=== PATIENT | male | born 1955 | race Caucasian/White ===

== ENCOUNTER 2016-10-22 22:05 | Inpatient (IN) | payer MEDICARE ==
[~2016-10-22] VITALS: Ht 182.9 cm; Wt 101.8 kg
[2016-10-22 22:05] VITALS: RESP 22; O2SAT 97
[~2016-10-22 22:05] MED LIST: AMIT10 PO; ASPI81TA82 PO; ATOR40TA49 PO; JANU50TA5 PO; METO25 PO; NITR0.4S SL; NOVO7030P2 SQ; PLAV75TA PO; ROPI1TAB PO; SERT-129 PO
[2016-10-22 22:17] VITALS: BP 138/85; PULSE 76; RESP 22; TEMP 97.9; O2SAT 96
[2016-10-22] MEDS ORDERED: MORPHINE SULFATE 4 MG/ML INJ IV PUSH ONE (22:30)
[2016-10-22] MEDS ORDERED: CLOPIDOGREL 300 MG TAB PO ONE (22:30)
[2016-10-22] MEDS ORDERED: NITROGLYCERIN 2% OINT 1 GM PACKET TOP ONE (22:30)
[2016-10-22] MEDS ORDERED: ENOXAPARIN SODIUM 100 MG/ML SYRINGE SQ ONE (22:30)
[2016-10-22] MEDS ORDERED: SODIUM CHLORIDE 0.9% FLUSH 5 ML FLUSH IVF PRN (22:30)
--- NOTE | 2016-10-22 22:34 | PD ---
HPI . Chest pain Chief Complaint: Chest Pain Time Seen by Provider: 22:16 Travel History International Travel<30 days: No Contact w/Intl Traveler<30days: No Traveled to known affect area: No History of Present Illness HPI Patient presents with chest pain started about 2100. It is associated with diaphoresis, shortness of breath, nausea. It radiates to the left shoulder and arm. He states that he has not taken anything for it prior to arrival. He states he was transported by EMS but was not given any nitroglycerin. Patient does report many previous similar episodes. He reports known [place] with at least one stent. PFSH Past Medical History Hx Anticoagulant Therapy: Yes (81 MG ASA) Arthritis: Yes Asthma: No Blood Disorders: No Depression: Yes Heart Rhythm Problems: No Cancer: No Cardiac Catheterization: Yes Cardiovascular Problems: Yes (5 TIMES 6971-1307) High Cholesterol: Yes Chest Pain: Yes Congestive Heart Failure: No COPD: No Cerebrovascular Accident: No Coronary Artery Disease: Yes Diabetes: Yes Patient Takes Glucophage: No Diminished Hearing: No Endocrine: Yes Gastrointestinal Disorders: Yes (STOMACH LIFTED(SUPPORTED)) GERD: No Genitourinary: No Headaches: Yes Hiatal Hernia: Yes (REPAIRED 1999) Hypertension: Yes Immune Disorder: No Implanted Vascular Access Dvce: Yes Musculoskeletal: No Neurologic: Yes Psychiatric: No Reproductive: No Respiratory: Yes Immunizations Current: Yes Migraines: Yes Seizures: No Sleep Apnea: No Thyroid Disease: No Ulcer: Yes Tetanus Vaccination: < 5 Years Influenza Vaccination: Yes Past Surgical History Abdominal Surgery: Yes (HERNIA REPAIR) AICD: No Arteriovenous Shunt: No Body Medical Devices: has cardiac stent Cardiac Surgery: Yes (STENT REPLACEMENT ) Coronary Stent: Yes (1993 & CHANGED IN 2007) Ear Surgery: No Endocrine Surgery: No Eye Surgery: Yes (LEFT RETINA REATTACHED) Genitourinary Surgery: No Gynecologic Surgery: No Insulin Pump: No Joint Replacement: No Neurologic Surgery: No Oral Surgery: No Pacemaker: No Thoracic Surgery: No Other Surgery: Yes (stent,knee surgery,hiatal hernia) Family History Family Hypercholesterolemia: Yes Social History Alcohol Use: No Tobacco Use: No Substance Use: No Allergies-Medications (Allergen,Severity, Reaction): Coded Allergies: No Known Allergies (Verified , 05/26/15) Reported Meds & Prescriptions Reported Meds & Active Scripts Active Reported Janumet 50/500 (Sitagliptin Phosphate/Metformin HCl) 1 Tab Tab 1 Tab PO BID ADMINISTER WITH MEALS Novolin 70/30 (Insulin Human Isoph/Insulin Regular) 100 Units/Ml Inj 60 Units SQ DAILY Novolin 70/30 (Insulin Human Isoph/Insulin Regular) 100 Units/Ml Inj 35 Units SQ DAILYAC Ropinirole HCl (Ropinirole Hydrochloride) 1 Mg Tab 1 Mg PO HS Aspir-81 (Aspirin) 81 Mg Tab 81 Mg PO DAILY Plavix (Clopidogrel Bisulfate) 75 Mg Tab 75 Mg PO DAILY Lipitor 40 Mg Tab (Atorvastatin Calcium) 40 Mg Tab 80 Mg PO DAILY Sertraline 100 mg (Sertraline HCl) 100 Mg Tab 50 Mg PO DAILY Elavil 10 Mg Tab (Amitriptyline HCl) 10 Mg Tab 10 Mg PO HS Metoprolol Tartrate 25 mg (Metoprolol Tartrate) 25 Mg Tab 25 Mg PO BID Nitrostat (Nitroglycerin) 0.4 Mg Subl 0.4 Mg SL PRN 1 TAB SL EVERY 5 MINS X 3 PRN CHEST PAIN Review of Systems Except as stated in HPI: all other systems reviewed are Neg General / Constitutional: Positive: Other (diaphoresis) Cardiovascular: Positive: Chest Pain or Discomfort Respiratory: Positive: Shortness of Breath Gastrointestinal: Positive: Nausea Physical Exam Narrative GENERAL: Patient is awake and alert. SKIN: He is pale and diaphoretic HEAD: Atraumatic. Normocephalic. EYES: Pupils equal and round. ENT: No nasal bleeding or discharge. Mucous membranes pink and moist. NECK: Trachea midline. Neck is supple. CARDIOVASCULAR: Regular rate and rhythm. Heart sounds are normal. RESPIRATORY: No accessory muscle use. Lungs are clear with full air movement throughout. GASTROINTESTINAL: Abdomen soft, non-tender, nondistended. MUSCULOSKELETAL: No obvious deformities. No edema. NEUROLOGICAL: Awake and alert. No obvious cranial nerve deficits. Motor grossly within normal limits. Normal speech. PSYCHIATRIC: Appropriate mood and affect; insight and judgment normal. Data Data Last Documented VS Vital Signs Date Time Temp Pulse Resp B/P Pulse Ox O2 Delivery O2 Flow Rate FiO2 10/22/16 22:17 97.9 76 22 138/85 96 10/22/16 22:05 Nasal Cannula 2 Orders Ckmb (Isoenzyme) Profile (10/22/16 22:16) Complete Blood Count With Diff (10/22/16 22:16) Comprehensive Metabolic Panel (10/22/16 22:16) Magnesium (Mg) (10/22/16 22:16) Prothrombin Time / Inr (Pt) (10/22/16 22:16) Act Partial Throm Time (Ptt) (10/22/16 22:16) Troponin I (10/22/16 22:16) Chest, Single Ap (10/22/16 22:16) Ecg Monitoring (10/22/16 22:16) Bilateral Bp Monitoring (10/22/16 22:16) Iv Access Insert/Monitor (10/22/16 22:16) Oximetry (10/22/16 22:16) Oxygen Administration (10/22/16 22:16) Clopidogrel (Plavix) (10/22/16 22:30) Morphine Inj (Morphine Inj) (10/22/16 22:30) Nitroglycerin 2% Oint (Nitroglycerin 2% (10/22/16 22:30) Sodium Chloride 0.9% Flush (Ns Flush) (10/22/16 22:30) Enoxaparin Inj (Lovenox Inj) (10/22/16 22:30) CKMB (10/22/16 22:30) CKMB% (10/22/16 22:30) Place In Observation (10/22/16 23:57) Activity Bed Rest With Brp (10/22/16 23:57) Vital Signs (Adult) Q4H (10/22/16 23:57) Cardiac Rhythm .As Directed (10/22/16 23:57) ^ Notify Dr: Other .PRN (10/22/16 23:57) ^ Notify Dr. Parameters (10/22/16 23:57) Resp Oxygen Nasal Cannula (10/22/16 ) Resp Pulse Oximetry (10/22/16 ) Diet Liquid (10/23/16 Breakfast) Diet Npo (10/23/16 Breakfast) Diet Heart Healthy (10/23/16 Breakfast) ^ Saline Lock (10/22/16 23:57) Ckmb (Isoenzyme) Profile (10/22/16 23:57) Ckmb (Isoenzyme) Profile (10/23/16 02:57) Troponin I (10/22/16 23:57) Troponin I (10/23/16 02:57) Lipase (10/22/16 23:57) Magnesium (Mg) (10/22/16 23:57) B-Type Natriuretic Peptide (10/22/16 23:57) Basic Metabolic Panel (Bmp) (10/22/16 23:57) Act Partial Throm Time (Ptt) (10/22/16 23:57) Electrocardiogram (10/22/16 23:57) Electrocardiogram (10/23/16 02:57) ^ Obtain (10/22/16 23:57) Sodium Chlor 0.9% 1000 Ml Inj (Ns 1000 M (10/22/16 23:57) D5-1/2 Ns + Kcl 20 Meq Inj (D5-1/2 Ns + (10/22/16 23:57) Sodium Chloride 0.9% Flush (Ns Flush) (10/23/16 00:00) Sodium Chloride 0.9% Flush (Ns Flush) (10/23/16 00:00) Acetaminophen (Tylenol) (10/23/16 00:00) Acetamin-Hydrocod 325-7.5 Mg (Timpson 7.5 (10/23/16 00:00) Morphine Inj (Morphine Inj) (10/23/16 00:00) Ondansetron Inj (Zofran Inj) (10/23/16 00:00) Ranitidine (Zantac) (10/23/16 00:00) Pantoprazole (Protonix) (10/23/16 09:00) Carvedilol (Coreg) (10/23/16 00:00) Metoprolol Tartrate (Lopressor) (10/23/16 00:00) Lisinopril (Prinivil) (10/23/16 09:00) Nitroglycerin 2% Oint (Nitroglycerin 2% (10/23/16 00:00) Nitroglycerin Sl (Nitrostat Sl) (10/23/16 00:00) Aspirin Chew (Aspirin Chew) (10/23/16 00:00) Aspirin (Aspirin) (10/23/16 09:00) Temazepam (Restoril) (10/23/16 00:00) Alprazolam (Xanax) (10/23/16 00:00) Vte Prophylaxis Not Indicated (10/22/16 23:57) Enoxaparin Inj (Lovenox Inj) (10/23/16 00:00) Enoxaparin Inj (Lovenox Inj) (10/23/16 00:00) Heparin Inj (Heparin Inj) (10/23/16 00:00) Labs Laboratory Tests Test 10/22/16 22:30 White Blood Count 8.4 TH/MM3 Red Blood Count 4.78 MIL/MM3 Hemoglobin 14.6 GM/DL Hematocrit 42.1 % Mean Corpuscular Volume 88.1 FL Mean Corpuscular Hemoglobin 30.4 PG Mean Corpuscular Hemoglobin 34.6 % Concent Red Cell Distribution Width 13.4 % Platelet Count 160 TH/MM3 Mean Platelet Volume 10.2 FL Neutrophils (%) (Auto) 64.3 % Lymphocytes (%) (Auto) 23.0 % Monocytes (%) (Auto) 8.1 % Eosinophils (%) (Auto) 3.7 % Basophils (%) (Auto) 0.9 % Neutrophils # (Auto) 5.4 TH/MM3 Lymphocytes # (Auto) 1.9 TH/MM3 Monocytes # (Auto) 0.7 TH/MM3 Eosinophils # (Auto) 0.3 TH/MM3 Basophils # (Auto) 0.1 TH/MM3 CBC Comment DIFF FINAL Differential Comment Prothrombin Time 10.0 SEC Prothromb Time International 0.9 RATIO Ratio Activated Partial 23.9 SEC Thromboplast Time Sodium Level 138 MEQ/L Potassium Level 3.8 MEQ/L Chloride Level 102 MEQ/L Carbon Dioxide Level 24.9 MEQ/L Anion Gap 11 MEQ/L Blood Urea Nitrogen 10 MG/DL Creatinine 0.94 MG/DL Estimat Glomerular Filtration 82 ML/MIN Rate Random Glucose 148 MG/DL Calcium Level 8.8 MG/DL Magnesium Level 1.7 MG/DL Total Bilirubin 0.6 MG/DL Aspartate Amino Transf 27 U/L (AST/SGOT) Alanine Aminotransferase 40 U/L (ALT/SGPT) Alkaline Phosphatase 79 U/L Total Creatine Kinase 162 U/L Creatine Kinase MB 2.6 NG/ML Troponin I 0.02 NG/ML Total Protein 7.5 GM/DL Albumin 3.7 GM/DL [facility] Medical Decision Making Medical Screen Exam Complete: Yes Emergency Medical Condition: Yes Interpretation(s) EKG shows a normal sinus rhythm with no ST segment elevation or depression. EKG is unchanged from previous. Differential Diagnosis Differential diagnosis of chest pain includes but is not limited to musculoskeletal pain, pulmonary embolism, acute coronary syndrome, pneumonia, pleurisy Narrative Course This is a patient with a known history of coronary artery disease who presents with chest pain, shortness of breath, diaphoresis and nausea. He will be treated presumptively for ACS while awaiting his workup. Chest x-ray is negative to the radiologist's interpretation. Chest x-ray was independently viewed by me. Initial cardiac enzymes are negative. However, the patient has a "good story." He will be admitted to the chest pain center for further evaluation. Critical Care Narrative Aggregate critical care time was 45 minutes. Time to perform other separately billable procedures was not included in the critical care time. My time did not include minutes spent treating any other patients simultaneously or on activities that did not directly contribute to the patient's treatment. The services I provided to this patient were to treat and/or prevent clinically significant deterioration that could result in: Sudden cardiac , cardiac disability, ACS, [place] I provided critical care services requiring my management, as noted below: Chart data review, documentation time, medication orders and management, vital sign assessments/reviewing monitor data, ordering and reviewing lab tests, ordering and interpreting/reviewing x-rays and diagnostic studies, care of the patient and discussion of the patient with the admitting physicians. Diagnosis Primary Impression: Chest pain Qualified Code: R07.9 - Chest pain, unspecified type Admitting Information Admitting Physician Requests: Admit Condition: Stable Kathya Cummins MD Oct 22, 2016 22:33
--- NOTE | 2016-10-22 22:47 | RADRPT ---
EXAM DATE/TIME: 10/22/2016 22:36 [facility] COMPARISON: CHEST SINGLE AP, May 22, 2014, 15:01. INDICATIONS : Chest pain. MEDICAL HISTORY : Diabetes. Coronary Artery Disease. SURGICAL HISTORY : Cardiac catheterization. ENCOUNTER: Initial ACUITY: 2 weeks PAIN SCORE: 5/10 LOCATION: chest FINDINGS: A single view of the chest demonstrates the lungs to be symmetrically aerated without evidence of mas s, infiltrate or effusion. The cardiomediastinal contours are unremarkable. Osseous structures are intact. CONCLUSION: No acute disease. Carlos Beltran MD on October 22, 2016 at 22:45 Board Certified Radiologist. This report was verified electronically.
[2016-10-22 22:50] LABS: AUTOMATED NEUTROPHIL # 5.4 TH/MM3 (1.8-7.7); BASOPHIL # 0.1 TH/MM3 (0-0.2); BASOPHIL % 0.9 % (0.0-2.0); EOSINOPHIL # 0.3 TH/MM3 (0-0.4); EOSINOPHIL % 3.7 % (0.0-4.0); HEMATOCRIT 42.1 % (39.0-51.0); HEMO FLAGS DIFF FINAL; LYMPHOCYTE # 1.9 TH/MM3 (1.0-4.8); MEAN CELL VOLUME 88.1 FL (80.0-100.0); MEAN CORPUSCULAR HEMOGLOBIN 30.4 PG (27.0-34.0); MEAN CORPUSCULAR HGB CONC 34.6 % (32.0-36.0); MONO % 8.1 % (0.0-8.0); NEUT % 64.3 % (16.0-70.0); PLATELET COUNT 160 TH/MM3 (150-450); RED BLOOD COUNT 4.78 MIL/MM3 (4.50-5.90); RED CELL DISTRIBUTION WIDTH 13.4 % (11.6-17.2); WHITE BLOOD COUNT 8.4 TH/MM3 (4.0-11.0)
[2016-10-22 23:00] LABS: APTT (PATIENT) 23.9 SEC (24.3-30.1); INTERNATIONAL NORMALIZED RATIO 0.9 RATIO
[2016-10-22 23:28] LABS: ALKALINE PHOSPHATASE 79 U/L (45-117); ALT (GPT) 40 U/L (12-78); ANION GAP 11 MEQ/L (5-15); AST (GOT) 27 U/L (15-37); BICARBONATE 24.9 MEQ/L (21.0-32.0); BLOOD UREA NITROGEN 10 MG/DL (7-18); CHLORIDE 102 MEQ/L (98-107); CREATINE KINASE 162 U/L (39-308); GLOMERULAR FILTRATION RATE 82 ML/MIN (>89); MAGNESIUM 1.7 MG/DL (1.5-2.5); SODIUM (NA) 138 MEQ/L (136-145); TOTAL BILIRUBIN ADULT 0.6 MG/DL (0.2-1.0)
[2016-10-22 23:37] LABS: POTASSIUM 3.8 MEQ/L (3.5-5.1)
[2016-10-22 23:50] LABS: CKMB 2.6 NG/ML (0.5-3.6)
[2016-10-22] MEDS ORDERED: D5-1/2 NS + KCL 20 MEQ INJ 1,000 ML IV SCH (23:57)
[2016-10-23] VITALS (10 sets, daily range): BP systolic 104–116; BP diastolic 58–74; PULSE 56–79; RESP 16–18; TEMP 98–98.3; O2SAT 92–98
[2016-10-23] MEDS ORDERED: MORPHINE SULFATE 4 MG/ML INJ IV PRN
[2016-10-23] MEDS ORDERED: ACETAMINOPHEN 500 MG CPLT PO PRN
[2016-10-23] MEDS ORDERED: SODIUM CHLORIDE 0.9% FLUSH 5 ML FLUSH IVF PRN
[2016-10-23] MEDS ORDERED: ENOXAPARIN SODIUM 30 MG/0.3 ML SYRINGE SQ SCH
[2016-10-23] MEDS ORDERED: ASPIRIN 81 MG CHEW TAB PO ONE
[2016-10-23] MEDS ORDERED: RANITIDINE HCL 150 MG TAB PO SCH
[2016-10-23] MEDS ORDERED: HEPARIN SODIUM - SQ 10,000 UNITS/ML VIAL SQ SCH ×2
[2016-10-23] MEDS ORDERED: ENOXAPARIN SODIUM 40 MG/0.4 ML SYRINGE SQ SCH
[2016-10-23] MEDS ORDERED: ALPRAZolam 0.25 MG TAB PO PRN
[2016-10-23] MEDS ORDERED: ACETAMINOPHEN/HYDROcodone 325 MG/7.5 MG TAB PO PRN
[2016-10-23] MEDS ORDERED: NITROGLYCERIN 0.4 MG SL 25 TABS/BTL SL PRN
[2016-10-23] MEDS: METOPROLOL TARTRATE 25 MG TAB PO SCH ×3 (00:46→23:58)
[2016-10-23] MEDS: SODIUM CHLOR 0.9% 1000 ML INJ 1,000 ML IV SCH ×3 (00:46→21:32)
[2016-10-23] MEDS: CARVEDILOL 3.125 MG TAB PO SCH ×3 (00:46→21:33)
[2016-10-23] MEDS: FAMOTIDINE 20 MG TAB PO SCH ×3 (02:13→21:33)
[2016-10-23 02:17] LABS: CREATINE KINASE 241 U/L (39-308)
[2016-10-23 02:30] LABS: CKMB 5.3 NG/ML (0.5-3.6)
[2016-10-23] MEDS ORDERED: ROPI1TAB PO (03:17)
[2016-10-23] MEDS ORDERED: JANU50TA4 PO (03:17)
[2016-10-23] MEDS ORDERED: PROP40TA3 PO (03:17)
[2016-10-23] MEDS ORDERED: ASPI81TA2 PO (03:17)
[2016-10-23] MEDS ORDERED: ATOR1TAB18 PO (03:17)
[2016-10-23] MEDS ORDERED: PLAV75TA29 PO (03:17)
[2016-10-23] MEDS ORDERED: HUMU70IN (03:17)
[2016-10-23] MEDS ORDERED: NITR0.4S SL (03:17)
[2016-10-23] MEDS ORDERED: TRAZ50TA12 PO (03:17)
[2016-10-23] MEDS ORDERED: SERT-129 PO (03:17)
[2016-10-23] MEDS ORDERED: GLUCAGON 1 MG/ML VIAL OTHER PRN (04:30)
[2016-10-23] MEDS ORDERED: DEXTROSE 50% IN WATER 50 ML VIAL(D50) IV PUSH PRN (04:30)
[2016-10-23 05:23] LABS: APTT (PATIENT) 27.5 SEC (24.3-30.1)
[2016-10-23 05:36] LABS: BICARBONATE 26.3 MEQ/L (21.0-32.0); MAGNESIUM 1.8 MG/DL (1.5-2.5); POTASSIUM 3.5 MEQ/L (3.5-5.1)
[2016-10-23 06:01] LABS: CKMB 6.9 NG/ML (0.5-3.6)
[2016-10-23] MEDS: NITROGLYCERIN 2% OINT 1 GM PACKET TOP SCH ×2 (06:02)
[2016-10-23] MEDS: INSULIN ASPART SUPPLEMENTAL SCALE SQ SCH ×4 (07:00→21:33)
[2016-10-23] MEDS: SODIUM CHLORIDE 0.9% FLUSH 5 ML FLUSH IVF SCH ×3 (09:00→21:32)
[2016-10-23] MEDS ORDERED: PANTOPRAZOLE SOD 40 MG DELAYED RELEASE TAB PO SCH (09:00)
[2016-10-23] MEDS ORDERED: ASPIRIN 325 MG TAB PO SCH (09:00)
[2016-10-23] MEDS: SERTRALINE HCL 100 MG TAB PO SCH (10:29)
[2016-10-23] MEDS: LISINOPRIL 10 MG TAB PO SCH (10:29)
--- NOTE | 2016-10-23 12:47 | MH ---
cc: VIRGINIA GIBSON DATE OF ADMISSION 10/23/2016 ADMISSION DIAGNOSIS Non-ST elevation elevated myocardial infarction. HISTORY OF PRESENT ILLNESS This is a 60-year white male well-known to the undersigned physician has a history of atherosclerotic heart disease with two previous coronary stents placed in the right coronary artery, the first in 1995 and second in 2007. The patient has been asymptomatic for any coronary disease until about the last two to three weeks, the patient stated that he started having intermittent chest pain which is described as substernal, sharp pain which would radiate up to his jaw and then to his left arm. He did not seek any medical attention. This was not exertional, but would occur any time of the day and with activity or rest. It was self-limiting and would go away on its own. He did not use any nitroglycerin. The patient states that on the night prior to admission, the patient had a sudden onset of severe sharp substernal chest pain which radiated to the left arm and up to the jaw. He was diaphoretic, lightheaded, weak and nauseated. His significant other contacted EMS and the patient was transported this to this facility for further evaluation and treatment. In the an ambulance, the patient's pain significantly improved. He stated that the initial pain was greater than a 10/10 per his report, but by the time he came to the emergency department, it was a 4-5/10. The patient reports nitroglycerin ointment was placed. The patient had an EKG which revealed no significant change from prior EKG. He states that the pain has slowly improved over his time in the emergency department. He now has a light pressure on his chest, but denies any shortness of breath, diaphoresis, or nausea. He rates the current sensation as a 2-3/10. The patient has had no abdominal pain or emesis. He states his bowels have been moving well. He has chronic peripheral neuropathy with numbness in the hands and feet. He has been compliant with his medications. He has a history of diabetes, but his recent lab work revealed poor glycemic control. The patient has had no fever, chills, night sweats, lateralizing neurologic deficits, palpitations, lower extremity edema. He denies any urinary difficulties. PAST MEDICAL HISTORY His past medical history significant for: 1. Hyperlipidemia 2. ASHD with coronary artery stents in the right coronary artery 3. in 1995 and 2007 4. Generalized osteoarthritis 5. Gastroesophageal reflux disease 6. Achalasia 7. Colonic polyps 8. Peripheral neuropathy in the hands and feet 9. History of gastroesophageal reflux disease with esophageal strictures the last of which was dilated in 2007. 10. He has chronic fatigue syndrome. 11. Non-insulin and diabetes. 12. He had a history of Salmonella gastroenteritis in 2013. 13. He has a history of anxiety and depression. 14. The patient also has restless leg syndrome. 15. He recently did drop an essential tremor for which he is receiving propranolol which is controlling the tremor. MEDICATIONS His current medications are: 1. Propranolol 40 mg 60 mg twice daily 2. Humulin 70/30 insulin, 30 units in morning and 55 units in the evening 3. Janumet 50/500 mg one tablet twice daily 4. Enteric-Coated aspirin 81 mg daily 5. Plavix 75 mg daily 6. Atorvastatin 80 mg daily 7. Sertraline 50 mg daily 8. Nitroglycerin 0.4 mg one sublingual every 5 minutes x3 p.r.n. chest pain 9. Ropinirole 1 mg at bedtime ALLERGIES He has no known drug allergies. PAST SURGICAL HISTORY His surgical history is positive for: 1. Arthroscopic surgery to the knee in 1987. 2. He had a laparoscopic fundoplication for severe gastroesophageal reflux disease in 1999. 3. He is status post bilateral cataract removal with lens implants. 4. He has had the above-mentioned coronary stent placements. 5. He had a cardiac catheterization the last of which was in 2012. FAMILY HISTORY Noncontributory SOCIAL HISTORY He is disabled due to chronic fatigue syndrome. He is single, but lives with a significant other. He is a former smoke, but he has no smoked in almost 20 years. REVIEW OF SYSTEMS Negative except as outlined above. PHYSICAL EXAMINATION VITAL SIGNS: The patient's blood pressure upon arrival to the emergency department was 138/85, heart rate was 76, respirations 22, temperature 97.9 degrees Fahrenheit, oxygen saturation was 97% on two liters minute per nasal cannula. GENERAL: At the current time, the patient is an overweight elderly middle-aged white male lying on a stretcher in no acute distress. HEENT: The pupils are equal, round reactive to light. EOMI. Sclerae anicteric. Conjunctive are pink. Bilateral lens implants in place. Mouth and throat reveal moist mucous membranes. No erythema or exudates. Dentition is good. NECK: Supple without lymphadenopathy, JVD, bruits or thyromegaly. CARDIOVASCULAR: Regular rate and rhythm without murmurs, rubs or gallops. LUNGS: Clear to auscultation without wheezes, rhonchi or rales. ABDOMEN: Soft, nontender, nondistended. Bowel sounds present. No mass palpable. No hepatosplenomegaly. AND RECTAL: Deferred. EXTREMITIES: Lower extremities reveal no appreciable edema. No calf tenderness. No Yesica sign and 2+ distal pulses. No open areas. No bony deformities. SKIN: Warm and dry. NEUROLOGIC EXAMINATION: The patient is awake, alert, oriented x3. Speech is intact. Cranial nerves are intact. There are no lateralizing deficits. LABORATORY DATA The patient's white blood cell count was 8.4, hemoglobin 14.6, hematocrit 42.1, platelet count 160,000. The INR was 0.9, APTT 23.9. His comprehensive metabolic profile was significant only for a random glucose of 148. His initial CK was 162 the second was 241 and the third was 336. An MB percent was 2.6 initially, then 5.3, and the third was 6.9%. Troponin was normal as initially at 0.02, but follow-up six hours later was 0.41 and the third was 0.80. BNP normal at 19. Lipase normal at 258. The chest x-ray revealed no acute disease. EKG The initial EKG revealed sinus rhythm with a rate of 77 beats per minute. There was some nonspecific ST T-wave abnormalities. The axis was -5 degrees. No significant change from prior studies. The subsequent two EKG's have not shown any significant changes. IMPRESSION AND PLAN 1. This 60-year-old white male presented and his initial cardiac enzymes and EKG's were unremarkable. He was to be placed in the chest pain center, however, his second set of cardiac enzymes were elevated, therefore his diagnosis was changed to a non-ST elevated myocardial infarction. At that time, the undersigned physician was contacted and the patient was placed under observation for further treatment and evaluation in the emergency department. The patient was given Lovenox 100 mg subcutaneously in the emergency department, as well as nitroglycerin paste and Plavix 300 mg one time dose. At the current time, the patient is reporting some mild chest pressure. The emergency room physician spoke with Dr. Louise who was covering for cardiology and he recommended continuing with current regimen and the patient will be catheterized "in the morning." Since the patient is going to need cardiac catheterization and likely further intervention, I have elected to change the patient from the observation status to inpatient status as there is a high likelihood that he will require more than two days of hospitalization in order to fully evaluate his cardiac status. The patient's regular hydraulic boom operator is Dr. Ceja and I have placed a call to him to determine if he will be proceeding with the evaluation or whether Dr. Louise will. Based on the conversation, we will we will consult with the appropriate hydraulic boom operator and will finalize the plan of care. 2. Insulin dependent diabetes. Hold scheduled insulin, provide a sliding scale and frequent Accu-Chek's until the patient is taking p.o. Hold Januvia and metformin at this point. 3. History of depression and anxiety. Continue with trazodone and sertraline. 4. Restless leg syndrome. Continue with Ropinerol. 5. History of gastroesophageal reflux disease. Continue with pantoprazole 40 mg daily. 6. Hyperlipidemia. Continue with atorvastatin 80 mg daily. 7. The patient will be continued with aspirin and Plavix, nitroglycerin paste and based on his response and the consultation with cardiology, we make further recommendations. MD MOISES Johnson/PAYAL /12:01 PM /12:26 PM
[2016-10-23] MEDS ORDERED: MIDAZOLAM HCL 2 MG/2 ML VIAL ONE (15:06)
[2016-10-23] MEDS ORDERED: HEPARIN-NS/PF INJ 500 ML ONE (15:06)
[2016-10-23] MEDS ORDERED: IOHEXOL 350 MG/ML 100 ML BTL (for Cath Lab) OTHER ONE (15:24)
[2016-10-23] MEDS ORDERED: HEPARIN SODIUM - IV 10,000 UNITS/10 ML VIAL ONE (15:44)
[2016-10-23] MEDS ORDERED: TIROFIBAN BOLUS INJ 100 ML IV ONE (15:45)
[2016-10-23] MEDS ORDERED: DOPamine INJ PREMIX 500 ML ONE (15:50)
--- NOTE | 2016-10-23 16:23 | MB ---
cc: CAYLA CEJA M.D., JASON DATE OF CONSULTATION: 10/23/2016 HISTORY OF PRESENT ILLNESS Thank you Dr. Shen for asking me to see this 60-year-old white male who is well-known to me for many years. He had his first stent in the right coronary in 1995. In 2007 he had a fracture of that stent and required a second stent. Subsequent to that he came to the emergency room and had a cardiac catheterization on 12/23/2012 and at that time he received a heart cath and was found to have no significant obstructive coronary artery disease with mild haziness in the mid LAD, suggestive of possible thrombus. He was treated medically and did fine. Over the past month according to the patient he has been having increasing chest pain. He did not tell his or seek medical advice. He now had 10/10 chest pain last night, he has had a bump in his troponin. EKG showed no major changes. Other problems include severe renal failure with a creatinine elevated today. PAST MEDICAL HISTORY 1. Positive for ASHD status post stent in the right coronary. 2. Osteoarthritis. 3. Hyperlipidemia. 4. Achalasia. 5. Colon polyps. 6. GE reflux. 7. Chronic fatigue syndrome. 8. Diabetes. 9. Salmonella. 10. Essential tremor. MEDICATION At home include: 1. Propranolol. 2. Humulin. 3. Janumet. 4. Enteric coated aspirin. 5. Plavix. 6. Aspirin. ALLERGIES None known. PAST SURGICAL HISTORY 1. Arthroscopic surgery right knee in 1987. 2. Laparoscopic fundoplication for reflux in 1999. 3. Status post cataract removal. FAMILY HISTORY Noncontributory. SOCIAL HISTORY Disabled. Former smoker. Lives with his significant other. REVIEW OF SYSTEMS Denies seizure, headache, vomiting, diarrhea, dysuria, hematuria. The remainder of 12 point review of systems is negative. PHYSICAL EXAMINATION VITAL SIGNS: His pulse was 56, blood pressure 114/65, respirations 18. EYES: No xanthelasma. MOUTH: No cyanosis or pallor. NECK: No JVD. CARDIAC: He had two heart sounds, no murmurs. CHEST: Clear. ABDOMEN: Soft. No hepatosplenomegaly. EXTREMITIES: Legs reveal no edema. NEUROLOGIC: Grossly intact. SKIN: Intact. LABORATORY DATA Hemoglobin 13.3, MCV 88.9. Troponin was 0.8, going up from 0.02, creatinine 0.84, BUN 10. ASSESSMENT/PLAN The patient is very unstable from a cardiac perspective. He has unstable angina with elevated troponin. EKG, however does show normal sinus rhythm with no obvious ST changes. Will plan to proceed with diagnostic heart catheterization. The risks of heart catheterization including , bleeding, myocardial infarction, perforation, aspiration, renal failure, foreseen and unforeseen complications were reviewed. The patient fully appeared to understand the risks. Cayla Ceja MD, CP,[facility] HAJ/TLL /2:29 PM /3:47 PM
[2016-10-23] MEDS ORDERED: CLOPIDOGREL 300 MG TAB ONE (16:27)
[2016-10-23] MEDS ORDERED: SODIUM CHLOR 0.9% 1000 ML INJ 1,000 ML IV SCH (17:01)
[2016-10-23] MEDS ORDERED: ONDANSETRON HCL 4 MG/2 ML VIAL IV PRN ×2 (17:15)
[2016-10-23] MEDS ORDERED: TEMAZEPAM 15 MG CAP PO PRN ×2 (17:15)
[2016-10-23] MEDS ORDERED: SODIUM CHLOR 0.9% 250 ML INJ 250 ML IV PRN (17:15)
[2016-10-23] MEDS ORDERED: MISC INFORMATION XX ONE (17:15)
[2016-10-23] MEDS ORDERED: ACETAMINOPHEN 325 MG TAB PO PRN (17:15)
[2016-10-23] MEDS ORDERED: oxyCODONE/ACETAMINOPHEN 5 MG/325 MG TAB PO PRN (17:15)
[2016-10-23] MEDS ORDERED: ASPIRIN 81 MG CHEW TAB PO SCH (17:15)
[2016-10-23] MEDS ORDERED: BACITRACIN OINT 0.9 GM PKT TOP ONE (17:15)
[2016-10-23] MEDS ORDERED: oxyCODONE/ACETAMINOPHEN 10 MG/325 MG TAB PO PRN (17:15)
[2016-10-23] MEDS ORDERED: ATROPINE SULFATE 1 MG/ML VIAL IV PRN (17:15)
--- NOTE | 2016-10-23 20:57 | EKG ---
Date Performed: 10/23/2016 Time Performed: 04:59:10 PTAGE: 60 years EKG: SINUS BRADYCARDIA NONSPECIFIC T-WAVE ABNORMALITY BORDERLINE ECG PREVIOUS TRACING : 05/23/2014 01.55 DOCTOR: Scotty Valentin Interpretating Date/Time 10/23/2016 20:55:23
[2016-10-23] MEDS ORDERED: traZODone HCL 50 MG TAB PO SCH (21:00)
[2016-10-23] MEDS ORDERED: ATORVASTATIN 80 MG TAB PO SCH (21:00)
--- NOTE | 2016-10-23 21:00 | EKG ---
Date Performed: 10/23/2016 Time Performed: 00:45:04 PTAGE: 60 years EKG: Sinus rhythm WITH SHORT MA INTERVAL NONSPECIFIC T-WAVE ABNORMALITY BORDERLINE ECG PREVIOUS TRACING : 05/23/2014 01.55 DOCTOR: Scotty Valentin Interpretating Date/Time 10/23/2016 20:58:58
--- NOTE | 2016-10-23 21:03 | EKG ---
Date Performed: 10/22/2016 Time Performed: 22:08:57 PTAGE: 60 years EKG: Sinus rhythm NONSPECIFIC T-WAVE ABNORMALITY BORDERLINE ECG NO PREVIOUS TRACING DOCTOR: Scotty Valentin Interpretating Date/Time 10/23/2016 21:01:01
[2016-10-24] VITALS (19 sets, daily range): BP systolic 118–144; BP diastolic 53–79; PULSE 62–93; RESP 16–18; TEMP 97.9–98.5; O2SAT 92–95
[2016-10-24] MEDS: NITROGLYCERIN 2% OINT 1 GM PACKET TOP SCH ×2 (06:00)
[2016-10-24] MEDS: INSULIN ASPART SUPPLEMENTAL SCALE SQ SCH ×3 (06:29→17:01)
--- NOTE | 2016-10-24 08:40 | HHI.PR ---
Subjective Remarks S/P Stent placement. Doing well. No chest pain or pressure. Denies SOB. Was ambulating in halls last evening. Taking po well. Current Medications Medications (Trade) Dose Ordered Sig/Vianca Route Start Time Stop Time Status Last Admin IV Flush 2 ml 2 ml UNSCH PRN IVF 10/22/16 22:30 (NS 1000 ml Inj) 1,000 ml @ 100 mls/hr Q10H IV 10/22/16 23:57 10/23/16 21:32 (NS Flush) 2 ml UNSCH PRN IVF 10/23/16 00:00 (NS Flush) 2 ml BID IVF 10/23/16 00:00 10/23/16 21:32 (Tylenol) 500 mg Q4H PRN PO 10/23/16 00:00 ([place] 7.5-325 Mg) 1 tab Q4H PRN PO 10/23/16 00:00 (Morphine Inj) 2 mg Q4H PRN IV 10/23/16 00:00 (Zofran Inj) 4 mg Q6H PRN IV 10/23/16 00:00 (Protonix) 40 mg DAILY PO 10/23/16 09:00 10/23/16 10:28 (Coreg) 3.125 mg BID PO 10/23/16 00:00 10/23/16 21:33 (Lopressor) 25 mg Q12H PO 10/23/16 00:00 10/23/16 23:58 (Prinivil) 10 mg DAILY PO 10/23/16 09:00 10/23/16 10:29 (Nitroglycerin 2% Oint) 1 inch Q6HR TOP 10/23/16 00:00 10/23/16 06:02 (Nitrostat Sl) 0.4 mg Q5M PRN SL 10/23/16 00:00 (Xanax) 0.25 mg Q8H PRN PO 10/23/16 00:00 (Pepcid) 20 mg BID PO 10/23/16 01:00 10/23/16 21:33 (Lipitor) 80 mg HS PO 10/23/16 21:00 10/23/16 21:33 (Requip) 1 mg HS PO 10/23/16 21:00 10/23/16 21:33 (Zoloft) 100 mg DAILY PO 10/23/16 09:00 10/23/16 10:29 (Desyrel) 50 mg HS PO 10/23/16 21:00 10/23/16 21:33 (D50w (Vial) Inj) 25 ml UNSCH PRN IV PUSH 10/23/16 04:30 (Glucagon Inj) 1 mg UNSCH PRN OTHER 10/23/16 04:30 (Tylenol) 325 mg Q4H PRN PO 10/23/16 17:15 10/23/16 18:06 (Percocet 5-325 Mg) 1 tab Q4H PRN PO 10/23/16 17:15 (Percocet 10-325 Mg) 1 tab Q4H PRN PO 10/23/16 17:15 (Restoril) 15 mg HS PRN PO 10/23/16 17:15 (Plavix) 75 mg DAILY PO 10/24/16 09:00 Atropine Sulfate 0.5 mg 0.5 mg UNSCH PRN IV 10/23/16 17:15 (NS 250 ml Inj) 250 ml @ 500 mls/hr ONCE PRN IV 10/23/16 17:15 10/24/16 17:14 (Zofran Inj) 4 mg Q4H PRN IV 10/23/16 17:15 (Aspirin Chew) 81 mg DAILY PO 10/24/16 09:00 Objective Vital Signs Date Time Temp Pulse Resp B/P Pulse Ox O2 Delivery O2 Flow Rate FiO2 10/24/16 07:45 95 Room Air 10/24/16 07:45 78 10/24/16 07:45 98.5 78 18 144/77 95 10/24/16 06:00 72 10/24/16 05:00 62 10/24/16 04:00 72 10/24/16 03:00 65 10/24/16 03:00 98.3 89 16 118/53 94 10/24/16 02:00 72 10/24/16 01:00 74 10/24/16 00:00 70 10/23/16 23:00 72 10/23/16 23:00 98.0 72 16 116/58 92 10/23/16 22:00 75 10/23/16 21:00 69 10/23/16 20:00 71 10/23/16 20:00 98.3 72 16 104/58 95 10/23/16 19:00 70 10/23/16 16:38 92 Room Air 10/23/16 15:52 98 21 10/23/16 14:30 79 18 110/67 98 Room Air 10/23/16 12:00 65 18 115/74 98 Room Air 10/23/16 10:00 70 18 110/63 98 I/O 10/23/16 10/23/16 10/23/16 10/24/16 10/24/16 10/24/16 07:00 15:00 23:00 07:00 15:00 23:00 Intake Total 906 ml Output Total 1000 ml Balance -94 ml Intake Oral 240 ml IV Total 666 ml Output Urine Total 1000 ml # Bowel Movements 0 Gen: NAD lying in bed CV: RRR Lungs: CTA Ext: no edema or calf tenderness Right groin: dressing in place. Small blood on dressing Result Diagram: 10/22/16222910/23/16 0446 Assessment and Plan Problem List: (1) ASHD (arteriosclerotic heart disease) Status: Chronic Plan: Status post stent placement. Doing well. Continues with Plavix, ECASA, Lisinopril and beta brenna. PAtient was receiving Propranolol as outpatient as it also helped with Essential tremor. (2) IDDM (insulin dependent diabetes mellitus) Status: Chronic Plan: PAtient will resume Humulin 70/30 insulin at discharge. Will hold metformin for 3 days due to cath. (3) Peripheral neuropathy Status: Chronic Plan: Stable (4) Generalized anxiety disorder Status: Chronic Plan: Continue current medication. Well controlled (5) Hyperlipidemia Status: Chronic Plan: resume Atorvastatin as outpatient Discharge Planning Patient will be up and out of bed today. If does well will discharge home later today. Problem Qualifiers (1) Peripheral neuropathy: Qualified Code: G60.9 - Idiopathic peripheral neuropathy (2) Hyperlipidemia: Qualified Code: E78.2 - Mixed hyperlipidemia Seth Shen MD Oct 24, 2016 08:40
[2016-10-24] MEDS ORDERED: CLOPIDOGREL 75 MG TAB PO SCH (09:00)
[2016-10-24] MEDS ORDERED: ASPIRIN 81 MG CHEW TAB PO SCH (09:00)
[2016-10-24] MEDS: SERTRALINE HCL 100 MG TAB PO SCH (09:46)
[2016-10-24] MEDS: LISINOPRIL 10 MG TAB PO SCH (09:46)
[2016-10-24] MEDS: SODIUM CHLORIDE 0.9% FLUSH 5 ML FLUSH IVF SCH (09:47)
[2016-10-24 10:35] LABS: BICARBONATE 24.4 MEQ/L (21.0-32.0); POTASSIUM 4.1 MEQ/L (3.5-5.1)
[2016-10-24] MEDS: METOPROLOL TARTRATE 25 MG TAB PO SCH (12:38)
--- NOTE | 2016-10-24 14:40 | PD.CARD.PN ---
Subjective Subjective Remarks Patient seen and evaluated at 0930 this morning. Patient feels "much better today". No Chest pain, diaphoresis of SOB. No groin pain at incision site. A small amount of bleeding on dressing. Hemodynamically stable. (Lynn Ordaz) Objective Medications Current Medications Medications (Trade) Dose Ordered Sig/Vianca Route Start Time Stop Time Status Last Admin IV Flush 2 ml 2 ml UNSCH PRN IVF 10/22/16 22:30 (NS 1000 ml Inj) 1,000 ml @ 100 mls/hr Q10H IV 10/22/16 23:57 10/23/16 21:32 (NS Flush) 2 ml UNSCH PRN IVF 10/23/16 00:00 (NS Flush) 2 ml BID IVF 10/23/16 00:00 10/24/16 09:47 (Tylenol) 500 mg Q4H PRN PO 10/23/16 00:00 ([place] 7.5-325 Mg) 1 tab Q4H PRN PO 10/23/16 00:00 (Morphine Inj) 2 mg Q4H PRN IV 10/23/16 00:00 (Lopressor) 25 mg Q12H PO 10/23/16 00:00 10/24/16 12:38 (Prinivil) 10 mg DAILY PO 10/23/16 09:00 10/24/16 09:46 (Nitrostat Sl) 0.4 mg Q5M PRN SL 10/23/16 00:00 (Xanax) 0.25 mg Q8H PRN PO 10/23/16 00:00 (Lipitor) 80 mg HS PO 10/23/16 21:00 10/23/16 21:33 (Requip) 1 mg HS PO 10/23/16 21:00 10/23/16 21:33 (Zoloft) 100 mg DAILY PO 10/23/16 09:00 10/24/16 09:46 (Desyrel) 50 mg HS PO 10/23/16 21:00 10/23/16 21:33 (D50w (Vial) Inj) 25 ml UNSCH PRN IV PUSH 10/23/16 04:30 (Glucagon Inj) 1 mg UNSCH PRN OTHER 10/23/16 04:30 (Tylenol) 325 mg Q4H PRN PO 10/23/16 17:15 10/23/16 18:06 (Restoril) 15 mg HS PRN PO 10/23/16 17:15 (Plavix) 75 mg DAILY PO 10/24/16 09:00 10/24/16 09:47 Atropine Sulfate 0.5 mg 0.5 mg UNSCH PRN IV 10/23/16 17:15 (NS 250 ml Inj) 250 ml @ 500 mls/hr ONCE PRN IV 10/23/16 17:15 10/24/16 17:14 (Aspirin Chew) 81 mg DAILY PO 10/24/16 09:00 10/24/16 09:46 Vital Signs / I&O Vital Signs Date Time Temp Pulse Resp B/P Pulse Ox O2 Delivery O2 Flow Rate FiO2 10/24/16 13:42 92 10/24/16 07:45 95 Room Air 10/24/16 07:45 78 10/24/16 07:45 98.5 78 18 144/77 95 10/24/16 06:00 72 10/24/16 05:00 62 10/24/16 04:00 72 10/24/16 03:00 65 10/24/16 03:00 98.3 89 16 118/53 94 10/24/16 02:00 72 10/24/16 01:00 74 10/24/16 00:00 70 10/23/16 23:00 72 10/23/16 23:00 98.0 72 16 116/58 92 10/23/16 22:00 75 10/23/16 21:00 69 10/23/16 20:00 71 10/23/16 20:00 98.3 72 16 104/58 95 10/23/16 19:00 70 10/23/16 16:38 92 Room Air 10/23/16 15:52 98 21 I/O 10/23/16 10/23/16 10/23/16 10/24/16 10/24/16 10/24/16 07:00 15:00 23:00 07:00 15:00 23:00 Intake Total 906 ml Output Total 1000 ml Balance -94 ml Intake Oral 240 ml IV Total 666 ml Output Urine Total 1000 ml # Bowel Movements 0 Physical Exam GENERAL: obese male, in bed, no distress SKIN: Warm and dry. HEAD: Normocephalic. EYES: No scleral icterus. No injection or drainage. NECK: Supple, trachea midline. No JVD or lymphadenopathy. CARDIOVASCULAR: Regular rate and rhythm without murmurs, gallops, or rubs. Right groin dressing saturated with small amount of blood. No tenderness to palpation or swelling. RESPIRATORY: Breath sounds equal bilaterally. No accessory muscle use. GASTROINTESTINAL: Abdomen soft, non-tender, nondistended. MUSCULOSKELETAL: No cyanosis, or edema. BACK: Nontender without obvious deformity. No CVA tenderness. Laboratory Laboratory Tests Test 10/24/16 09:48 Sodium Level 138 MEQ/L Potassium Level 4.1 MEQ/L Chloride Level 106 MEQ/L Carbon Dioxide Level 24.4 MEQ/L Anion Gap 8 MEQ/L Blood Urea Nitrogen 9 MG/DL Creatinine 0.88 MG/DL Estimat Glomerular Filtration 88 ML/MIN Rate Random Glucose 239 MG/DL Calcium Level 8.0 MG/DL Imaging Last 72 hours Impressions Chest X-Ray 10/22/16 6876 Signed Impressions: Service Date/Time: Saturday, October 22, 2016 22:36 - CONCLUSION: No acute disease. Carlos Beltran MD (Lynn Ordaz) Assessment and Plan Assessment and Plan ASSESSMENT: NSTEMI s/p cardiac cath with [place] to RCA. Other stents patent. No LV gram completed Hx ASHD HLD HTN IDDM Obesity Tremor PLAN: Continue ASA, Plavix, statin and HARINDER. BB changed from propranolol to metoprolol. If tremors increase, propranolol is ok. Discussed importance of Plavix with the patient in detail The patient is stable from a cardiac standpoint for discharge. We will follow up in 1 week. Instructed to call the office or go to the emergency room with any concerns. The patient understands the importance of regular cardiology followup. Patient seen and evaluated by Dr Ceja. (Lynn Ordaz) Assessment and Plan The exam, history, and the medical decision-making described in the above note were completed with the assistance of the mid-level provider. I reviewed and agree with the findings presented. I attest that I had a [id number] encounter with the patient on the same day, and personally performed and documented my assessment and findings in the medical record. Wound Ok reviewed Plavix ok to dc (Cayla Ceja MD) Lynn Ordaz Oct 24, 2016 14:40 Cayla Ceja MD Oct 24, 2016 14:43
--- NOTE | 2016-10-24 14:42 | PD.CARD.PN ---
Subjective Subjective Remarks No Chest pain wound ok Objective Medications Current Medications Medications (Trade) Dose Ordered Sig/Vianca Route Start Time Stop Time Status Last Admin IV Flush 2 ml 2 ml UNSCH PRN IVF 10/22/16 22:30 (NS 1000 ml Inj) 1,000 ml @ 100 mls/hr Q10H IV 10/22/16 23:57 10/23/16 21:32 (NS Flush) 2 ml UNSCH PRN IVF 10/23/16 00:00 (NS Flush) 2 ml BID IVF 10/23/16 00:00 10/24/16 09:47 (Tylenol) 500 mg Q4H PRN PO 10/23/16 00:00 ([place] 7.5-325 Mg) 1 tab Q4H PRN PO 10/23/16 00:00 (Morphine Inj) 2 mg Q4H PRN IV 10/23/16 00:00 (Lopressor) 25 mg Q12H PO 10/23/16 00:00 10/24/16 12:38 (Prinivil) 10 mg DAILY PO 10/23/16 09:00 10/24/16 09:46 (Nitrostat Sl) 0.4 mg Q5M PRN SL 10/23/16 00:00 (Xanax) 0.25 mg Q8H PRN PO 10/23/16 00:00 (Lipitor) 80 mg HS PO 10/23/16 21:00 10/23/16 21:33 (Requip) 1 mg HS PO 10/23/16 21:00 10/23/16 21:33 (Zoloft) 100 mg DAILY PO 10/23/16 09:00 10/24/16 09:46 (Desyrel) 50 mg HS PO 10/23/16 21:00 10/23/16 21:33 (D50w (Vial) Inj) 25 ml UNSCH PRN IV PUSH 10/23/16 04:30 (Glucagon Inj) 1 mg UNSCH PRN OTHER 10/23/16 04:30 (Tylenol) 325 mg Q4H PRN PO 10/23/16 17:15 10/23/16 18:06 (Restoril) 15 mg HS PRN PO 10/23/16 17:15 (Plavix) 75 mg DAILY PO 10/24/16 09:00 10/24/16 09:47 Atropine Sulfate 0.5 mg 0.5 mg UNSCH PRN IV 10/23/16 17:15 (NS 250 ml Inj) 250 ml @ 500 mls/hr ONCE PRN IV 10/23/16 17:15 10/24/16 17:14 (Aspirin Chew) 81 mg DAILY PO 10/24/16 09:00 10/24/16 09:46 Vital Signs / I&O Vital Signs Date Time Temp Pulse Resp B/P Pulse Ox O2 Delivery O2 Flow Rate FiO2 10/24/16 13:42 92 10/24/16 07:45 95 Room Air 10/24/16 07:45 78 10/24/16 07:45 98.5 78 18 144/77 95 10/24/16 06:00 72 10/24/16 05:00 62 10/24/16 04:00 72 10/24/16 03:00 65 10/24/16 03:00 98.3 89 16 118/53 94 10/24/16 02:00 72 10/24/16 01:00 74 10/24/16 00:00 70 10/23/16 23:00 72 10/23/16 23:00 98.0 72 16 116/58 92 10/23/16 22:00 75 10/23/16 21:00 69 10/23/16 20:00 71 10/23/16 20:00 98.3 72 16 104/58 95 10/23/16 19:00 70 10/23/16 16:38 92 Room Air 10/23/16 15:52 98 21 I/O 10/23/16 10/23/16 10/23/16 10/24/16 10/24/16 10/24/16 07:00 15:00 23:00 07:00 15:00 23:00 Intake Total 906 ml Output Total 1000 ml Balance -94 ml Intake Oral 240 ml IV Total 666 ml Output Urine Total 1000 ml # Bowel Movements 0 Physical Exam GENERAL: Well-nourished, well-developed patient in no apparent distress. SKIN: Warm and dry. NECK: JVD normal - less than or equal to 5 cm H20. CARDIOVASCULAR: Regular rate and rhythm without murmurs, gallops or rubs. RESPIRATORY: Normal breath sounds - equal bilaterally. No accessory muscle use. No wheezes, rales or rubs. PERIPHERY: No cyanosis or edema. wound site good Laboratory Laboratory Tests Test 10/24/16 09:48 Sodium Level 138 MEQ/L Potassium Level 4.1 MEQ/L Chloride Level 106 MEQ/L Carbon Dioxide Level 24.4 MEQ/L Anion Gap 8 MEQ/L Blood Urea Nitrogen 9 MG/DL Creatinine 0.88 MG/DL Estimat Glomerular Filtration 88 ML/MIN Rate Random Glucose 239 MG/DL Calcium Level 8.0 MG/DL Assessment and Plan Assessment and Plan Stable groin Ok to d/c on plavoix seen by Dr Shen and Cayla Aceves MD Oct 24, 2016 14:42
[2016-10-24] MEDS ORDERED: JANU50TA4 PO (17:04)
[2016-10-24] MEDS ORDERED: LISI10TA3 PO (17:04)
--- NOTE | 2016-10-24 22:40 | EKG ---
Date Performed: 10/24/2016 Time Performed: 05:20:22 PTAGE: 60 years EKG: Sinus rhythm Normal ECG PREVIOUS TRACING : 10/24/2016 05.19 DOCTOR: Wilfredo Dominguez Interpretating Date/Time 10/24/2016 22:38:52
--- NOTE | 2016-10-29 09:35 | MA ---
cc: CAYLA CEJA M.D., JASON R. M.D. DATE: 10/23/2016 PROCEDURE 1. Intracoronary stent placement. 2. Left heart cath. 3. Non-STEMI. CONSENT A full informed consent was obtained prior to the procedure. The risks of , bleeding, myocardial infarction, perforation, aspiration, foreseen and unforeseen complications were reviewed. The patient fully appeared to understand the risks. PROCEDURAL STATEMENTS The patient was draped and prepped in the usual manner. The right femoral artery was entered using a micropuncture technique via a 4-[place]wegian sheath. Left and right coronary catheters were to use to intubate the left and right coronaries. A pigtail catheter was used to intubate the left ventricle. Multiple angiographic views were carried out. At the end of the catheterization procedure the 4-Norwegian sheath was exchanged for a 6-Norwegian sheath. Via the 6-Norwegian sheath an ART 3.5 guide catheter was used to intubate the right coronary. A 0.014 Prowater wire was used to cross the high-grade RCA lesion and following this a 3.0 x 10 mm balloon was used to cross the high-grade stenosis. It was inflated to nominal pressures. Following this a 3.25 x 15 mm stent was passed across the lesion and deployed at nominal pressures. Following this a 3.25 x 8 mm noncompliant balloon was passed across the lesion and inflated to 14 atmospheres for 30 seconds. An ACT of 312 was obtained prior to the wiring of the lesion. The patient was given dopamine because of low blood pressure and normal saline x1 liter. At the end of the procedure all catheters were removed. A femoral angiogram was performed. Angio-Seal was deployed in the usual manner. FINDINGS HEMODYNAMICS The aortic pressure was 81/54 with a mean of 66. LEFT VENTRICULOGRAM A left ventriculogram was not done. CORONARIES The left main shows evidence of a distal 40% left main stenosis. The left anterior descending artery was diffusely diseased. The first diagonal branch was large and free of significant disease. The circumflex artery was a large vessel with a large first obtuse marginal branch and a small second obtuse marginal branch. There was evidence of 25% mild diffuse disease in the circumflex and mild diffuse disease in the LAD and diagonal. The right coronary artery was a large vessel with a large posterior descending artery and large posterolateral branches. There was evidence of a very long stent in the entire mid right coronary. At the distal end of the stent there was evidence of a high-grade 95% stenosis with evidence of thrombus. The patient was given a bolus of heparin when that was noted. Following stent placement the lesion was reduced to 0%. CONCLUSIONS Treatment of the high-grade 95% stenosis of the mid right coronary distal to previously placed stent. Two Prowater wires were used as the first Prowater wire appeared to be in a stent strut. PLAN Will plan to discharge the patient in the a.m. Will continue with dual-platelet therapy and antihyperlipidemic therapy as per Dr. Shen. Cayla Ceja MD, FRCP,[facility]/BT /4:30 PM /9:22 AM [place]
== END 2016-10-24 18:00 | disposition home or self-care (01) | DRG 247 ==
LOC: NEPC 22:05 → NEDA 10-23 00:19 → NEDH 10-23 04:21 → OBSVTOIN 10-23 11:52 → HCIN 10-23 18:20
PROVIDERS: ADMIT Family Medicine; ATTEND Family Medicine
PROC: 4A023N7 Measurement of Cardiac Sampling and Pressure, Left Heart, Percutaneous Approach (ICD-10-PCS; 2016-10-23)
PROC: B2111ZZ Fluoroscopy of Multiple Coronary Arteries using Low Osmolar Contrast (ICD-10-PCS; 2016-10-23)
PROC: 027034Z Dilation of Coronary Artery, One Artery with Drug-eluting Intraluminal Device, Percutaneous Approach (ICD-10-PCS; principal; 2016-10-23 15:00)
DX: I21.4 Non-ST elevation (NSTEMI) myocardial infarction (principal); I25.110 Atherosclerotic heart disease of native coronary artery with unstable angina pectoris; G62.9 Polyneuropathy, unspecified; I10 Essential (primary) hypertension; F32.9 Major depressive disorder, single episode, unspecified; F41.1 Generalized anxiety disorder; Z95.5 Presence of coronary angioplasty implant and graft; E11.9 Type 2 diabetes mellitus without complications; Z79.4 Long term (current) use of insulin; G25.81 Restless legs syndrome; K21.9 Gastro-esophageal reflux disease without esophagitis; E78.5 Hyperlipidemia, unspecified; M15.9 Polyosteoarthritis, unspecified; G25.0 Essential tremor; Z87.891 Personal history of nicotine dependence; R53.82 Chronic fatigue, unspecified; E66.9 Obesity, unspecified; Z68.30 Body mass index [BMI] 30.0-30.9, adult; Z86.010 Personal history of colon polyps; Z96.1 Presence of intraocular lens
CPT/HCPCS: 71010; 80048; 80053; 82550; 82552; 82948; 83690; 83735; 83880; 84484; 85002; 85025; 85610; 85730; 92928; 93005; 93454; 96372; 96374; C1725; C1760; C1769; C1874; C1887; C1893; G0269; J1265; J1644; J1650; J1815; J2250; J2270; J3010; J3246; J7030; Q9967